=== PATIENT | male | born 1960 | race Caucasian/White ===

== ENCOUNTER 2023-01-17 06:25 | Emergency (ER) | payer MEDICARE, OTHER, MEDICAID, SELFPAY ==
[2023-01-17] VITALS (7 sets, daily range): BP systolic 100–199; BP diastolic 67–117; PULSE 56–75; RESP 14–16; TEMP 36.9; O2SAT 99–100
--- NOTE | ~2023-01-17 | XR_ITS ---
EXAMINATION: XR chest 1V portable DATE: 01/17/2023 07:11 INDICATION: Head injury. Altered mental status. TECHNIQUE: A single frontal view of the chest was obtained. COMPARISON: None. FINDINGS: There is no pneumonia, pleural effusion, or pneumothorax. The heart size is normal. IMPRESSION: 1. No acute cardiopulmonary disease. Reviewed, dictated and finalized at location A.
--- NOTE | ~2023-01-17 | CT_ITS ---
EXAMINATION: CT facial & cervical spine wo DATE: 01/17/2023 07:10 INDICATION: Head injury. TECHNIQUE: Computed tomography (CT) of the maxillofacial region and cervical spine was performed with out intravenous contrast. Automated exposure control and iterative reconstruction technique were empl oyed. The dose-length product was 349.32 mGy-cm. COMPARISON: None FINDINGS: MAXILLOFACIAL CT: There is leftward deviation of anterior nasal septum and rightward deviation of posterior nasal septu m. There is mild mucosal thickening ethmoid sinuses. There is an old fracture deformity of the anteri or wall of right maxillary sinus. The orbits are normal. There is a fracture of the skull on the righ t including a longitudinal component in the right temporal bone that extends to the temporomandibular joint. There are foci of pneumocephalus overlying the right temporal lobe. There is a right otomasto id effusion. The ossicles are not dislocated. There is a fracture of the right zygomatic arch. There is right lateral scalp soft tissue swelling with soft tissue gas. There are multiple broken teeth wit h periapical lucencies. There is a carious lesion of a left maxillary molar. CERVICAL SPINE CT: There is mild kyphosis of cervical spine. Vertebral body heights are normal. There is moderately decr eased disc height at C3-C4 and C4-C5, mildly decreased disc height at C5-C6, and severely decreased d isc height at C6-C7. The following disc levels are specifically discussed: C2-C3: There is mild bilateral uncovertebral joint osteoarthritis. There is mild bilateral facet join t osteoarthritis. There is no neural foraminal stenosis. There is no central canal stenosis. C3-C4: There is severe bilateral uncovertebral joint osteoarthritis. There is moderate bilateral face t joint osteoarthritis. There is mild bilateral neural foraminal stenosis. There is mild central mary l stenosis. C4-C5: There is severe bilateral uncovertebral joint osteoarthritis. There is mild bilateral facet swathi int osteoarthritis. There is mild bilateral neural foraminal stenosis. There is mild central canal st enosis. C5-C6: There is mild bilateral uncovertebral joint osteoarthritis. There is mild bilateral facet join t osteoarthritis. There is no neural foraminal stenosis. There is mild central canal stenosis. C6-C7: There is severe bilateral uncovertebral joint osteoarthritis. There is mild bilateral facet swathi int osteoarthritis. There is mild bilateral neural foraminal stenosis. There is mild central canal st enosis. C7-T1: There is no uncovertebral joint osteoarthritis. There is moderate right and mild left facet swathi int osteoarthritis. There is mild right neural foraminal stenosis. There is no central canal stenosis . IMPRESSION: 1. Acute fracture involving the right skull including the right temporal bone. 2. Acute fracture of the right zygomatic arch. 3. Severe cervical spondylosis. Reviewed, dictated and finalized at location A.
--- NOTE | ~2023-01-17 | XR_ITS ---
EXAMINATION: XR chest ET placement DATE: 01/17/2023 08:28 INDICATION: Intubation. TECHNIQUE: A single frontal view of the chest was obtained. COMPARISON: Chest single view at 6:58 AM FINDINGS: Left lateral lung is excluded. There is no pneumonia, pleural effusion, or pneumothorax. Th e heart size is normal. The endotracheal tube tip is 4.8 cm above the tito. IMPRESSION: 1. No acute cardiopulmonary disease. Reviewed, dictated and finalized at location A.
--- NOTE | ~2023-01-17 | CT_ITS ---
EXAMINATION: CT brain wo con DATE: 01/17/2023 07:06 INDICATION: Head injury. Altered mental status. TECHNIQUE: Computed tomography (CT) of the head was performed without intravenous contrast. The mA wa s adjusted according to patient size. Iterative reconstruction technique was employed. The dose-lengt h product was 605.33 mGy-cm. COMPARISON: None FINDINGS: There is acute intraparenchymal hematoma in anterior inferior left frontal lobe and anteroi nferior right temporal lobe. There is acute subarachnoid hemorrhage in the sulci of the frontal lobes and right temporal lobe and in right sylvian fissure. There is an acute subdural hematoma overlying the right frontal, parietal, and temporal lobes with maximum thickness of 6 mm. There is no acute isc hemic infarct or abnormal mass lesion. There is old infarct in the left basal ganglia. There are scat tered areas of low attenuation in the cerebral white matter. No midline shift. The ventricles are nor mal in size. The orbits are normal. There is mild mucosal thickening in the ethmoid sinuses. There is a right mastoid effusion. There are fractures involving the right temporal bone, right posterolatera l skull, and right middle skull base. There are foci of pneumocephalus overlying right temporal lobe. There is right-sided scalp soft tissue swelling with soft tissue gas. IMPRESSION: 1. Acute intraparenchymal hematoma involving anteroinferior left frontal lobe and anteroinferior righ t temporal lobe. 2. Acute subarachnoid hemorrhage in the sulci of the frontal lobes and right temporal lobe and in rig ht sylvian fissure. 3. Acute subdural hematoma overlying the right frontal, parietal, and temporal lobes. 4. 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 5. Moderate nonspecific cerebral white matter disease, which likely represents chronic small vessel i schemic disease. 6. Right-sided skull fracture including involvement of the right temporal bone. Reviewed, dictated and finalized at location A. IMPRESSION: 1. Acute intraparenchymal hematoma involving anteroinferior left frontal lobe a nd anteroinferior right temporal lobe. 2. Acute subarachnoid hemorrhage in the sulci of the frontal lobes and right te mporal lobe and in right sylvian fissure. 3. Acute subdural hematoma overlying the right frontal, parietal, and temporal lobes. 4. 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 5. Moderate nonspecific cerebral white matter disease, which likely represents chronic small vessel ischemic disease. 6. Right-sided skull fracture including involvement of the right temporal bone.
--- NOTE | 2023-01-17 06:36 | ECG_ITS ---
Measurements Intervals [place] Rate: 70 P: 78 [place]: 201 QRS: 86 QRSD: 113 T: 21 QT: 443 QTc: 479 Interpretive Statements SINUS RHYTHM NONSPECIFIC ST AND T-WAVE ABNORMALITY ABNORMAL ECG NO PREVIOUS ECG AVAILABLE FOR COMPARISON Electronically Signed On 01-17-2023 7:35:53 CDT by Gerard Madera M.D.
[2023-01-17 06:47] LABS: Basophils Absolute Auto 0.1 K/mm3 (0.0-0.1); Basophils Percent Auto 0.4 % (0.2-1.2); Eosinophils Absolute Auto 0.1 K/mm3 (0-0.3); Eosinophils Percent Auto 0.8 % (0-4.4); Hematocrit 37.7 % (42.0-52.0); Hemoglobin 13.2 g/dL (14.0-18.0); Immature Granulocyte Absolute 0.14 K/mm3 (0.00-0.031); Immature Granulocyte Percent A 0.8 % (0-0.5); Lymphocytes Absolute Auto 1.24 K/mm3 (0.9-3.2); Lymphocytes Percent Auto 7.4 % (18.3-44.2); Mean Corpuscular Hemoglobin 31.7 pg (26-34); Mean Corpuscular Volume 90.4 fl (80-100); Mean Platelet Volume 10.2 fl (7.4-10.4); Monocytes Absolute Auto 0.6 K/mm3 (0.1-0.6); Monocytes Percent Auto 3.7 % (2.6-8.5); Neutrophils Absolute Auto 14.6 K/mm3 (1.3-6.7); Neutrophils Percent Auto 86.9 % (45.5-73.1); Platelet Count Result 235 k/mm3 (150-375); Red Blood Count 4.17 M/mm3 (4.6-6.20); Red Cell Distribution Width 14.8 % (11.5-14.5); White Blood Count 16.9 K/mm3 (4.5-10.0)
[2023-01-17 06:58] LABS: Prothrombin Time 13.6 Seconds (11.1-14.7)
[2023-01-17 06:59] LABS: Alanine Aminotransferase 50 U/L (6-50); Albumin Level 5.1 g/dL (3.5-5.1); Alkaline Phosphatase 105 U/L (38-126); Anion Gap 13 mmol/L (8-16); Aspartate Amino Transferase 47 U/L (17-59); Blood Urea Nitrogen 14 mg/dL (9-20); Calcium 9.6 mg/dL (8.4-10.2); Carbon Dioxide 28 mmol/L (22-30); Chloride 91 mmol/L (98-107); Estimated Glomerular Filt Rate > 60; Glucose 361 mg/dL (65-110); Partial Thromboplastin Time 31.2 SECONDS (22.3-36.8); Potassium 3.4 mmol/L (3.4-5.0); Sodium 132 mmol/L (137-145)
--- NOTE | 2023-01-17 06:59 | PC.NURSE ---
Patient taken to CT via stretcher at this time.
[2023-01-17 07:05] LABS: Appearance Urine Clear (Clear); Bacteria Urine None Seen /hpf; Bilirubin Urine Negative (Negative); Blood Urine Trace (Negative); Color Urine Yellow (Yellow); Glucose Urine UA 3+ mg/dL (Negative); Ketones Urine 1+ mg/dL (Negative); Leukocyte Esterase Ur Negative LEU/UL (Negative); Nitrate Urine Negative (Negative); Non Pathogenic Casts 0-2; Protein Urine 1+ mg/dL (Negative); RBC Urine 0-2 /hpf (0-2); Specific Grav Ur 1.017 (1.001-1.035); Squamous Epithelial Cell Urine None seen /hpf (Few); Urobilinogen Urine 0.2 mg/dL (<2.0); WBC Urine 0-5 /hpf
[2023-01-17 07:15] LABS: Amphetamine Screen Urine Positive (Negative); Barbiturate Screen Urine Negative (Negative); Benzodiazepines Screen Urine Negative (Negative); Cannabinoid Screen Urine Negative (Negative); Cocaine Screen Urine Negative (Negative); Methadone Screen Urine Negative (Negative); Opiate Screen Urine Negative (Negative); Phencyclidine Screen Urine Negative (Negative)
--- NOTE | 2023-01-17 07:16 | ED.AMS ---
HPI - Altered Mental Status General Chief Complaint: Altered Mental Status Stated Complaint: AMS Time Seen by Provider: 01/17/23 07:16 Source: EMS Mode of arrival: EMS History of Present Illness HPI narrative: 62 years old white male brought to the emergency room by ambulance [place] gas station with confusion, acting funny, uncooperative with EMT, hematoma at the back of the head, trace of bleeding at the right nostril. Patient arrived with c-collar on, not answering any question, only stating just let me sleep. No family member around, no history, never been seen in our hospital before. I was told that the patient from [place]. Related Data Allergies Allergy/AdvReac Type Severity Reaction Status Date / Time Unable to Assess Allergy Verified 01/17/23 06:42 Review of Systems Review of Systems: ROS unobtainable: Yes unobtainable due to mental status PMFSH Family History Family History Other Family history of malignant neoplasm of breast in first degree relative Social History Social History Smoking status: Light tobacco smoker Alcohol intake: current Substance use type: crack/cocaine Exam Narrative: General appearance: Well-developed, well-nourished, laying down in bed, intermittent snoring, moves all extremities, stating left me goes to sleep Skin: Normal color Head: Occipital hematoma Eyes: Clear conjunctiva ENT: Oropharynx normal, ears normal, dry blood right nostril Neck: Supple, nontender Chest and respiratory: Airway patent, no respiratory distress, no accessory muscle use Heart: Regular rate/rhythm Abdomen: Soft, nontender, no organomegaly, quiet bowel sounds Vascular: Normal peripheral pulses, normal capillary refill. Musculoskeletal: Normal range of motion, nontender back Neurologic: Somnolence, alert given more Narcan The Course Consultations Consultation #1: DR ROWLEY [facility] of [facility] Date: 01/17/23 Time: 07:48 Vital Signs Vital signs: Vital Signs Temperature 36.9 C 01/17/23 06:25 Pulse Rate 71 01/17/23 06:25 Respiratory Rate 14 01/17/23 06:25 Blood Pressure 189/117 H 01/17/23 06:25 Pulse Oximetry 100 01/17/23 06:25 Oxygen Delivery Room Air 01/17/23 06:25 Temperature 36.9 C 01/17/23 06:25 Pulse Rate 72 01/17/23 06:34 Respiratory Rate 14 01/17/23 06:25 Blood Pressure 189/117 H 01/17/23 06:33 Pulse Oximetry 100 01/17/23 06:34 Oxygen Delivery Room Air 01/17/23 06:25 Procedures Intubation Intubation #1: Intubation Date: 01/17/23 Intubation Time: 08:09 Time out performed: Yes (10) sedative: Versed Mg Given: 100 paralytic: Succinylcholine Mg Given: 100 Laryngoscope: fiber optic video scope Assist Device Used: fiber optic device Tube Size (cm): 7.5 Method of Intubation: orotracheal Number of Attempts: 1 Tube Placement Confirmation: visualized tube passing through cords Patient Tolerated Procedure: well Intubation Complications: none MDM - Altered Mental Status MDM Narrative Medical decision making narrative: Patient found at a gas station acting funny, confused, with occipital hematoma arrived to the ED by ambulance, c-collar on, no significant other at the bedside, patient is from [place], looks like homeless Work-up today showed, urine positive for amphetamine, intracranial hemorrhage, skull fracture, elevated blood pressure 190/20, nicardipine drip was started, patient got accepted to be transferred to [facility]. Patient never b
[2023-01-17 07:17] LABS: Add Urine Microscopic? YES
--- NOTE | 2023-01-17 07:21 | PC.NURSE ---
Assumed care of patient from CT scan. Per report, pt brought in from [place] for bizarre behavior, exposing himself. Trauma was not witnessed, however, patient has hematoma to back of his head as well as dried blood from right nare. No other obvious injuries. Pt in C-collar upon this RN assuming care, however, with pt's altered mental status he keeps adjusting the collar himself. C-collar replaced on patient appropriately with two RN's at bedside. Pt not answering questions, but able to say stop, let me up multiple times with clear speech when stimulated. Pt is lethargic, protecting airway, even/unlabored respirations, 99% on RA. Pupils equal and reactive, 4mm bilaterally. MAEW. Blood pressure high, 199/122. HR 68 and regular.
[2023-01-17] MEDS: LABETALOL HCL INJ 100 MG/20 ML VIAL 20 MG IV PUSH (07:55)
--- NOTE | 2023-01-17 07:59 | PC.NURSE ---
MD Garcia, respiratory, two RNs and [facility] team at bedside preparing for intubation. Per MD Garcia, remove C-collar. No change in mental status. HR 75, 100% SpO2, BP 199/89. Labetalol given at this time, Nicardipine drip started by [facility] team. 4mg Versed, 100 succ given at 0800 for intubation.
--- NOTE | 2023-01-17 08:03 | PC.NURSE ---
Addendum entered by Amber Nieto RN 01/17/23 08:07: Equal breath sounds bilaterally. Bagged with BVM. Original Note: 7.5 tube inserted by MD Garcia, secured at 22 at teeth.
--- NOTE | 2023-01-17 08:32 | PC.NURSE ---
After x-ray, tube advanced, 24 at teeth at 0818. Equal breath sounds bilaterally. C-collar replaced on patient by [facility]. Nicardipine was stopped prior to intubation by [facility] team. Pt's blood pressure dropped to 100 systolic and HR down to 55 after intubating, nicardipine was not restarted. Pt's blood pressure increased after few minutes to 140's systolic and pt making purposeful movements with hands/arms, wiggling toes. Propofol was initiated by [facility]. Ramirez catheter inserted before leaving [facility]. Pt leaving department at this time.
== END 2023-01-17 08:37 | disposition short-term general hospital (02) ==
PROVIDERS: Emergency Medicine; Emergency Provider Emergency Medicine
DX: S06.6XAA Traumatic subarachnoid hemorrhage with loss of consciousness status unknown, initial encounter (principal); S06.5XAA Traumatic subdural hemorrhage with loss of consciousness status unknown, initial encounter; S02.19XA Other fracture of base of skull, initial encounter for closed fracture; S02.40EA Zygomatic fracture, right side, initial encounter for closed fracture; F17.200 Nicotine dependence, unspecified, uncomplicated; M47.812 Spondylosis without myelopathy or radiculopathy, cervical region; R90.82 White matter disease, unspecified; R94.31 Abnormal electrocardiogram [ECG] [EKG]; X58.XXXA Exposure to other specified factors, initial encounter
CPT/HCPCS: 31500; 36415; 70450; 70486; 71045; 72125; 80053; 80307; 81001; 85025; 85610; 85730; 93005; 96374; 99291; J0330; J2060; J2250; J2704